=== PATIENT | female | born 1970 | race Caucasian/White ===

== ENCOUNTER 2016-08-28 11:56 | Emergency (ER) | payer BC ==
[~2016-08-28] VITALS: Ht 165.1 cm; Wt 79.4 kg
[~2016-08-28 11:56] MED LIST: AMBIEN 10MG TAB10 MG PO; ASPIRIN 325MG325 MG PO; CALCIUM ACETAT667 MG PO; CEFTIN500 MG PO; CIPRO 250MG TA250 MG PO; COMBIVENT INH14.7 GM IN; DUONEB 3 MG/3 ML3 ML IH; ESTRACE2 MG PO; ESTRADIOL1 MG PO; FEXOFENADINE60 MG PO; FLONASE 50 MCG16 GM; FOLIC ACID0.8 MG PO; HALCION0.25 MG PO; MOTRIN800 MG PO; NORCO 325 MG-51 TAB PO; PERCOCET1 TAB PO; PYRIDIUM 200MG200 MG PO; SIMVASTATIN40 MG PO; SINGULAIR10 MG PO; TOPAMAX25 M1 PO; TRAMADOL 50MG T1 PAK PO; ZANAFLEX4 M3 PO; ZITHROMAX Z PA250 MG PO; ZOCOR40 MG PO; ZOLOFT100 M1 PO; ZYRTEC10 M3 PO
--- NOTE | 2016-08-28 13:02 | Emergency Room Report ---
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 N Clinical Suspician of Infection? N Mental Status: 1 - Regular (Normal Baseline) Sepsis Risk:Low Sepsis Risk Have you (or family members/close friends) recently traveled outside the [place]? N If Yes, where/when: Have you had exposure to infectious disease within the past month? N TB? Other? Specify: Exam Limitations no limitations Timing/Duration just prior to arrival (injury occured about 11:30 AM) Severity moderate Modifying Factors Worsens With: movement, palpatioin. Associated Symptoms pt was wearing a ring and it had to removed, bruising and swelling ALLERGIES Coded Allergies: Penicillins (Intermediate, I-ITCHING 03/21/16) latex (Intermediate, I-HIVES AND SWELLING 03/21/16) promethazine (From PHENERGAN) (Intermediate, LOSS OF MUSCLE CONTROL 03/21/16) Corticosteroids (Glucocorticoids) (Severe, STEROID PSYCHOSIS 03/21/16) codeine (Mild, NA-NAUSEA/VOMITING 03/21/16) Home Medications Active Scripts TIZANIDINE HCL (Zanaflex) 4 MG PO TID #90 TAB Ref 2 Prov: 03/26/16 Reported Medications Albuterol/Ipratropiu (Duoneb) 3 ML IH Q6H Folic Acid 0.8 MG PO DAILY CETIRIZINE HCL (Zyrtec) 10 MG PO DAILY Estradiol 1 MG PO DAILY Montelukast Sodium (Singulair) 10 MG PO QHS Simvastatin (Zocor) 40 MG PO QHS ASPIRIN (Aspirin 325MG) 325 MG PO QHS SERTRALINE HCL (Zoloft) 100 MG PO DAILY Triazolam (Halcion) 3.5 MG PO QHS Zolpidem Tartrate (Ambien 10MG) 10 MG PO QHS Calcium Acetate (Unknown Dose) PO DAILY History Medical History General CAD? No Angina: No [place]: No Hypertension? No Hyperlipidemia? Yes CHF? No DVT? No PE? No COPD? No Asthma? Yes Anemia? No GERD? No Gastric ulcers? No GI Bleed? No Hernia? No Thyroid Problems? No Hypothyroidism? No CVA? Yes Seizures? No Diabetes? No Insulin Dependent: No Insulin Pump: No Home FSBS? No Renal Insuffiency? No End Stage Renal Disease? No UTI? No Stones? No BPH? No GB Disease: No Nephritic Syndrome? No Asplenia? No Hepatitis? No Sickle Cell Disease? No Arthritis? Yes Migraines? No Cataracts? No Glaucoma? No MRSA? No HIV? No TB? No Anxiety? No Depression? No Cancer? No More? 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 Hx LMP N/A Family History Family Hx Diabetes Yes CAD Yes Hypertension Yes Hyperlipidemia Yes Cancer Yes TB No Social History Smoking Hx Smoker: Never Smoker Tobacco: No Packs/day < 1 Pack Alcohol Alcohol: No Review of Systems All Other Systems Reviewed and Negative Musculoskeletal joint swelling (left 3rd and 4th digits), muscle pain, muscle stiffness, other ( bruised) Physical Exam Vital Signs Vital Signs Date Time Temp Pulse Resp B/P Pulse O2 O2 Flow FiO2 Ox Delivery Rate 08/28 1257 70 16 139/87 97 08/28 1204 98.3 98 16 144/106 98 General Appearance normal appearance Eye Exam - bilateral eye PERRL Respiratory Status No: respiratory distress. Cardiovascular regular rate/rhythm Extremities normal capillary refill, limited range of motion, swelling, left 3rd and 4th digits +TTP, positive for bruising, pain with flexion and extention. Neurologic alert Medical Decision Making LABS/Meds/Orders Pt receiving controlled substance in ED? No Results/Orders Orders Procedure Date/time Status HAND-LT-3 VIEWS 08/28 1208 Active [id number] (RING)-3 VIEWS 08/28 1208 Active XRAY/CT/US XRAY/CT/US XRAY hand XR interpretation by reviewed by me (No fx seen, tiny old FB ) Xray Results normal/NAD, no fracture seen Departure Departure Time of Disposition 1258 Disposition DC Home or Self Care(routine) Clinical Impression Primary Impression: Contusion of left index finger Qualifiers: Encounter type: initial encounter Damage to nail status: without damage Qualified Code: S60.022A - Contusion of left index finger without damage to nail, initial encounter Condition STABLE Referrals SOLIS TORRES (Family): 1 Week-Call Office Patient Instructions Contusion ED Critical Care Critical Care No at [id number]
--- NOTE | 2016-08-28 13:02 | Emergency Room Report ---
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 N Clinical Suspician of Infection? N Mental Status: 1 - Regular (Normal Baseline) Sepsis Risk:Low Sepsis Risk Have you (or family members/close friends) recently traveled outside the [place]? N If Yes, where/when: Have you had exposure to infectious disease within the past month? N TB? Other? Specify: Exam Limitations no limitations Timing/Duration just prior to arrival (injury occured about 11:30 AM) Severity moderate Modifying Factors Worsens With: movement, palpatioin. Associated Symptoms pt was wearing a ring and it had to removed, bruising and swelling ALLERGIES Coded Allergies: Penicillins (Intermediate, I-ITCHING 03/21/16) latex (Intermediate, I-HIVES AND SWELLING 03/21/16) promethazine (From PHENERGAN) (Intermediate, LOSS OF MUSCLE CONTROL 03/21/16) Corticosteroids (Glucocorticoids) (Severe, STEROID PSYCHOSIS 03/21/16) codeine (Mild, NA-NAUSEA/VOMITING 03/21/16) Home Medications Active Scripts TIZANIDINE HCL (Zanaflex) 4 MG PO TID #90 TAB Ref 2 Prov: 03/26/16 Reported Medications Albuterol/Ipratropiu (Duoneb) 3 ML IH Q6H Folic Acid 0.8 MG PO DAILY CETIRIZINE HCL (Zyrtec) 10 MG PO DAILY Estradiol 1 MG PO DAILY Montelukast Sodium (Singulair) 10 MG PO QHS Simvastatin (Zocor) 40 MG PO QHS ASPIRIN (Aspirin 325MG) 325 MG PO QHS SERTRALINE HCL (Zoloft) 100 MG PO DAILY Triazolam (Halcion) 3.5 MG PO QHS Zolpidem Tartrate (Ambien 10MG) 10 MG PO QHS Calcium Acetate (Unknown Dose) PO DAILY History Medical History General CAD? No Angina: No PA: No Hypertension? No Hyperlipidemia? Yes CHF? No DVT? No PE? No COPD? No Asthma? Yes Anemia? No GERD? No Gastric ulcers? No GI Bleed? No Hernia? No Thyroid Problems? No Hypothyroidism? No CVA? Yes Seizures? No Diabetes? No Insulin Dependent: No Insulin Pump: No Home FSBS? No Renal Insuffiency? No End Stage Renal Disease? No UTI? No Stones? No BPH? No GB Disease: No Nephritic Syndrome? No Asplenia? No Hepatitis? No Sickle Cell Disease? No Arthritis? Yes Migraines? No Cataracts? No Glaucoma? No MRSA? No HIV? No TB? No Anxiety? No Depression? No Cancer? No More? 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 Family History Family Hx Diabetes Yes CAD Yes Hypertension Yes Hyperlipidemia Yes Cancer Yes TB No Social History Smoking Hx Smoker: Never Smoker Tobacco: No Packs/day < 1 Pack Alcohol Alcohol: No Review of Systems All Other Systems Reviewed and Negative Musculoskeletal joint swelling (left 3rd and 4th digits), muscle pain, muscle stiffness, other ( bruised) Physical Exam Vital Signs Vital Signs Date Time Temp Pulse Resp B/P Pulse O2 O2 Flow FiO2 Ox Delivery Rate 08/28 1257 70 16 139/87 97 08/28 1204 98.3 98 16 144/106 98 General Appearance normal appearance Eye Exam - bilateral eye PERRL Respiratory Status No: respiratory distress. Cardiovascular regular rate/rhythm Extremities normal capillary refill, limited range of motion, swelling, left 3rd and 4th digits +TTP, positive for bruising, pain with flexion and extention. Neurologic alert Medical Decision Making LABS/Meds/Orders Pt receiving controlled substance in ED? No Results/Orders Orders Procedure Date/time Status HAND-LT-3 VIEWS 08/28 1208 Active [id number]-[id number] (RING)-3 VIEWS 08/28 1208 Active XRAY/CT/US XRAY/CT/US XRAY hand XR interpretation by reviewed by me (No fx seen, tiny old FB ) Xray Results normal/NAD, no fracture seen Departure Departure Time of Disposition 1258 Disposition DC Home or Self Care(routine) Clinical Impression Primary Impression: Contusion of left index finger Qualifiers: Encounter type: initial encounter Damage to nail status: without damage Qualified Code: S60.022A - Contusion of left index finger without damage to nail, initial encounter Condition STABLE Referrals SOLIS TORRES (Family): 1 Week-Call Office Patient Instructions Contusion ED Critical Care Critical Care No at [phone]
[2016-08-28 13:24] VITALS: BP 139/87
--- NOTE | 2016-08-28 13:34 | RADIOLOGY REPORT PS360 ---
HAND-LT-3 VIEWS HISTORY: Posttraumatic pain and swelling SHUT IN DOOR-- 3 4TH FINGERS COMPARISON: None FINDINGS: No fracture or dislocation. No lytic or blastic change. There is normal mineralization. The joint spaces are well-preserved. No significant degenerative/arthritic changes. No erosive changes evident. There is a small metallic density along the radial and palmar aspect of the distal phalanx of the index finger consistent with a foreign body age indeterminate. IMPRESSION: 1. No acute fracture. 2. Foreign body of the index finger
== END 2016-08-28 13:24 | disposition home or self-care (01) ==
LOC: ER 11:56
DX: S60.022A Contusion of left index finger without damage to nail, initial encounter (principal); W23.1XXA Caught, crushed, jammed, or pinched between stationary objects, initial encounter; Y92.009 Unspecified place in unspecified non-institutional (private) residence as the place of occurrence of the external cause

== ENCOUNTER → 2017-06-22 | Emergency (ER) | payer BC ==
[~2017-06-22] VITALS: Ht 165.1 cm; Wt 81.6 kg
[~2017-06-22] MED LIST changes: +FLEXERIL10 MG PO; +LEVAQUIN750 MG PO; +MOTRIN 600MG.600 MG PO; +ZITHROMAX Z-PA250 M2 PO
--- OUTSIDE RECORDS SUMMARY | 2017-06-22 09:45 | External Medical Summary Rpt | CCD ---
Author Author , REBECA JOSE Address Unknown Phone [email or web address] Providers Care Sock Drier Name Role Phone NEDRA NGERO MD, Unavailable Unavailable NEDRA NEGOR MD Purpose Continuity of Care Document - 08-15-2013 through 2016 Problems Code Diagnosis DOS Provider Status 305.1 305.1 08-15-2013 [place] TOBACCO USE [facility] DISORDER [facility] 787.20 787.20 08-15-2013 [facility], [facility] UNSPECIFIED Hospital V14.0 V14.0 08-15-2013 [facility] [place] ALL[place]GY Hospital V14.8 V14.8 08-15-2013 [facility]GY [facility] Hospital Allergies, Adverse Reactions, Alerts Type Allergy to substance Drug Allergy Adverse Reaction to Substance Substance Reaction Severity Latex HIVES AND SWELLING Unknown STEROIDS STEROID PSCHOSIS Unknown Penicillin I-HIVES Unknown Codeine Unknown Unknown Promethazine INVOL CONTROL OF Unknown MUSCLES Medications Na ND Rx Da Fi Fi Am Da Di Ph RX Ph St me C No te ll ll ou ys ag ar # ys at rm s nt no ma ic us Or Da si cy ia de te s n re d Sa 63 12 0 No li 80 -2 ne 70 1- Lo 10 20 ng Fl 07 13 er us 5 h Ac 10 ti ML ve Sy ri ng e LO 00 12 0 No RA 64 -2 ZE 16 1- Lo PA 04 20 ng M 82 13 er 2 5 MG Ac /M ti L ve AL RA 63 12 0 No D- 80 -2 SA 70 1- Lo LI 10 20 ng NE 07 13 er 5A FL Ac US ti H ve 10 ML SY RI NG E IS 00 12 0 No OV 27 -2 UE 01 1- Lo -3 31 20 ng 70 65 13 er 2 76 Ac % ti IN ve FU S ARIA TT LE SO 00 12 0 No JAYJAY 00 -2 -M 90 1- Lo ED 04 20 ng RO 72 13 er L 2 12 Ac 5 ti MG ve AL Vital Signs 08-15-2013 14:22 Name Value Interpretat Reference Comment ion Range Body 98 [degF] Temperature BP 78 mm[Hg] Diastolic BP Systolic 119 mm[Hg] Heart 66 /min Rate/Pulse O2% 96 % Respiratory 18 /min Rate 08-15-2013 14:20 Name Value Interpretat Reference Comment ion Range Body 98 [degF] Temperature 08-15-2013 13:43 Name Value Interpretat Reference Comment ion Range BP 82 mm[Hg] Diastolic BP Systolic 120 mm[Hg] Heart 75 /min Rate/Pulse O2% 98 % Respiratory 20 /min Rate Encounters Encounter Start End Date Code Location Performer Type Date Emergency ASTRID NEGRO MD (ER) 3 13:05 3 14:28 [facility] [place]
--- OUTSIDE RECORDS SUMMARY | 2017-06-22 09:45 | External Medical Summary Rpt | CCD ---
Author Author , REBECA JOSE Address Unknown Phone [email or web address] Providers Care Trouble Dispatcher Name Role Phone NEDRA NEGRO MD, Unavailable Unavailable NEDRA NEGRO MD Purpose Continuity of Care Document - 08-15-2013 through 2016 Problems Code Diagnosis DOS Provider Status 305.1 305.1 08-15-2013 [place] TOBACCO USE [facility] DISORDER [facility] 787.20 787.20 08-15-2013 [facility], [facility] UNSPECIFIED Hospital V14.0 V14.0 08-15-2013 [facility] [place] ALLERGY Hospital V14.8 V14.8 08-15-2013 [facility] ALLERGY [employer] [facility] Allergies, Adverse Reactions, Alerts Type Allergy [...] NEGRO MD (ER) 3 13:05 3 14:28 [facility]
--- OUTSIDE RECORDS SUMMARY | 2017-06-22 09:46 | External Medical Summary Rpt ---
Author Author REBECA Gardiner, [employer] Organization [employer] Address Unknown Phone Unavailable
--- OUTSIDE RECORDS SUMMARY | 2017-06-22 09:46 | External Medical Summary Rpt | CCD ---
Demographics Preferred Language Armenian Marital Status Unknown Anabaptist Affiliation Unknown Race Unknown Ethnic Group Unknown Author Author , REBECA JOSE Address Unknown Phone Immunization Unable to retrieve immunization data due to connection failure with Immunization Registry. Please try again later.
--- OUTSIDE RECORDS SUMMARY | 2017-06-22 09:46 | External Medical Summary Rpt | CCD ---
Demographics Preferred Language Frisian Marital Status Unknown Anglican Affiliation Unknown Race Unknown Ethnic Group Unknown Author Author , REBECA JOSE Address Unknown Phone Immunization Unable to retrieve immunization data due to connection failure with Immunization Registry. Please try again later.
--- NOTE | 2017-06-22 10:09 | Urgent Treatment Center Report ---
History of Present Issue Date/Time Seen by Provider 06/22/17 1000 Visit Reason Pt arrived:Walked Presenting Problem:PT C/O OF CHEST CONGESTION, YELLOW DRAINAGE, COUGH, FEVER, BODY ACHES. Location if Accident: Onset of symptoms date/time:06/21/17 or onset unknown for: Have you (or family members/close friends) recently traveled outside the [place]? N If Yes, where/when: Have you had exposure to infectious disease within the past month? TB? Other? Specify: Source patient, RN notes reviewed Exam Limitations no limitations Comment 47-year-old female presents with complaint of body aches, chills, nasal congestion, coughing up yellow sputum and fever for 2 days. Patient states her grandson is also sick with croup ALLERGIES Coded Allergies: Penicillins (Intermediate, I-ITCHING 03/21/16) latex (Intermediate, I-HIVES AND SWELLING 03/21/16) promethazine (From PHENERGAN) (Intermediate, LOSS OF MUSCLE CONTROL 03/21/16) Corticosteroids (Glucocorticoids) (Severe, STEROID PSYCHOSIS 03/21/16) codeine (Mild, NA-NAUSEA/VOMITING 03/21/16) Home Medications Active Scripts IBUPROFEN (Motrin 600MG) 600 MG PO QIDP PRN BACK PAIN #12 TAB Prov: 12/25/16 Reported Medications Albuterol/Ipratropiu (Duoneb) 3 ML IH Q6H Folic Acid 0.8 MG PO DAILY CETIRIZINE HCL (Zyrtec) 10 MG PO DAILY Estradiol 1 MG PO DAILY Montelukast Sodium (Singulair) 10 MG PO QHS Simvastatin (Zocor) 40 MG PO QHS ASPIRIN (Aspirin 325MG) 325 MG PO QHS SERTRALINE HCL (Zoloft) 100 MG PO DAILY Triazolam (Halcion) 3.5 MG PO QHS Calcium Acetate (Unknown Dose) PO DAILY History Medical History General CAD? No Angina: No ND: No Hypertension? No Hyperlipidemia? Yes CHF? No DVT? No PE? No COPD? No Asthma? Yes Anemia? No GERD? No Gastric ulcers? No GI Bleed? No Hernia? No Thyroid Problems? No Hypothyroidism? No CVA? Yes Seizures? No Diabetes? No Insulin Dependent: No Insulin Pump: No Home FSBS? No Renal Insuffiency? No UTI? No Stones? No BPH? No GB Disease: No Nephritic Syndrome? No Asplenia? No Hepatitis? No Sickle Cell Disease? No Arthritis? Yes Migraines? No Cataracts? No Glaucoma? No MRSA? No HIV? No TB? No Anxiety? No Depression? No Cancer? No More? Yes Additional hx: SI JOINT DYSFUNCTION OSTEOARTHIRITS Immunization HX DT/Tetanus 1-4 Years Ago Pneumonia Unknown Surgical Hx Previous Surgery?Y Tubal Ligation Tonsils LAP TVH [place] Appendix LEFT BREAST-TUMOR Family History Family HX Diabetes Yes CAD Yes Hypertension Yes Hyperlipidemia Yes Cancer Yes TB No Social History Smoking Hx Smoker: Never Smoker Tobacco: No Packs/day < 1 Pack Alcohol Alcohol: No Review of Systems All Other Systems Reviewed and Negative ENT see HPI. Respiratory see HPI, cough Physical Exam Vital Signs Vital Signs Date Time Temp Pulse Resp B/P Pulse O2 O2 Flow FiO2 Ox Delivery Rate 06/22 0957 100.0 91 20 127/78 95 - WBC >12,000 or <4,000 or 10% bands? 2 or more SIRS Criteria Met? B/P:127/78 MAP:94 Creatinine >2.0? UA output<0.5ml/kg/hr for 2 hrs? Platelet count >100,000? Lactate >2.0mmol/1? INR >1.2 or PTT > than 60 sec? Evidence of Organ Dysfunction? Provider documented clinical suspician of infection? Sepsis Criteria Count: 2 Sepsis Risk: General Appearance normal appearance, no apparent distress Eye Exam - bilateral eye normal exam, bilateral eye PERRL, bilateral eye EOMI Ear, Nose, Throat hearing grossly normal, pharyngeal erythema Neck normal inspection, full range of motion Respiratory Status Yes: trachea midline, chest symmetrical, non tender chest. No: respiratory distress. Lung Sounds posterior: rhonchi. bilateral: normal breath sounds, lungs clear. left: rhonchi. right: normal breath sounds, lungs clear. Cardiovascular normal exam, regular rate/rhythm Peripheral Pulses Pulses normal Yes Gastrointestinal normal bowel sounds, soft Neurologic alert, normal exam, oriented x 3 Medical Decision Making LABS/Meds/Orders Pt receiving controlled substance in ED? No Results/Orders Orders Procedure Date/time Status [facility] FLU A,B 06/22 1001 Active Departure Departure Time of Disposition 1003 Disposition DC Home or Self Care(routine) Clinical Impression Primary Impression: Acute bronchitis Qualifiers: Bronchitis organism: unspecified organism Qualified Code: J20.9 - Acute bronchitis, unspecified Condition STABLE Patient Instructions Acute Bronchitis, DI for Acute Bronchitis Additional Instructions Tylenol or Motrin as needed for pain or fever Follow-up with PCP this week if no improvement Return or be seen in ER if symptoms worsen or do not improve Discharge Counseling Counseled pt/family regarding diagnosis, test results, medications/RX, home care, follow up needs Prescriptions Current Visit Scripts Azithromycin (Zithromax) 250 MG PO DAILY 5 Days 2 tablets day 1 1 tablet daily 2 through 5 Comments Will treat with antibotics based on her exposure to croup at [id number]
[2017-06-22 10:10] VITALS: BP 127/78
== END ==
LOC: UTC 09:41
DX: J20.9 Acute bronchitis, unspecified (principal); Z91.040 Latex allergy status; Z88.0 Allergy status to penicillin